=== PATIENT | female | born 1995 | race Caucasian/White ===

== ENCOUNTER 2016-10-05 21:27 | Inpatient (IN) | payer OTHER ==
[~2016-10-05] VITALS: Ht 157.5 cm; Wt 143.0 kg
[~2016-10-05 21:27] MED LIST: LUTERA 0.02 MG-1 TAB PO; OSCAL 500 TAB500 MG PO
[2016-10-05 22:10] LABS: HEMATOCRIT 42.4 % (37.0-47.0); HEMOGLOBIN 14.2 g/dl (12.5-16.0); MEAN CELL VOLUME 88 fl (80.0-100.0); MEAN CORPUSCULAR HEMOGLOBIN 30 pg (27.0-31.0); MEAN CORPUSCULAR HGB CONC 34 g/dl (33.0-37.0); MEAN PLATELET VOLUME 10.9 fl (7.4-10.4); PLATELET COUNT 283 K/mm3 (130-400); REDCELL DISTRIBUTION WIDTH-CV 12.6 % (11.5-14.5)
[2016-10-05 22:15] LABS: ADD PATHOLOGY DIFF REVIEW NO; WHITE BLOOD COUNT 23.9 K/mm3 (4.8-10.8)
[2016-10-05 22:20] LABS: ADJUSTED CALCIUM 9.8 mg/dL (8.4-10.2); ALBUMIN 3.8 gm/dL (3.5-5.0); BILIRUBIN,TOTAL 1.9 mg/dL (0.0-1.0); CALCIUM 9.6 mg/dL (8.4-10.2); CREATININE, serum 0.98 mg/dL (0.52-1.25); TOTAL PROTEIN 7.8 gm/dL (6.4-8.2)
[2016-10-05 22:33] LABS: PH 7 (5-8); SQUAMOUS EPITHELIAL 0-2 /hpf; URINE APPEARANCE Clear; URINE BACTERIA Rare /hpf; URINE BILIRUBIN Negative (NEGATIVE); URINE BLOOD Negative (NEGATIVE); URINE COLOR Yellow; URINE GLUCOSE Negative (NEGATIVE); URINE KETONE 2+ (NEGATIVE); URINE RBC 0-2 /hpf; URINE UROBILINOGEN >=4.0 mg/dL (NEGATIVE)
[2016-10-05 22:39] LABS: BAND 46 % (0-10); METAMYELOCYTE 2 % (0-0); NEUTROPHILS 45 % (42.0-75.2); PLATELET ESTIMATE NORMAL (NORMAL); TOTAL CELLS COUNTED 100
[2016-10-06] VITALS (13 sets, daily range): BP systolic 107–126; BP diastolic 60–80; PULSE 68–122; TEMP 97.8–99.3
[2016-10-06] MEDS ORDERED: ZOFRAN ODT8 MG PO (00:19)
[2016-10-06] MEDS ORDERED: OSCAL 500 TAB500 MG PO (00:20)
[2016-10-06] MEDS ORDERED: IBU800 M1 PO (00:20)
[2016-10-06] MEDS ORDERED: LUTERA 0.02 MG-1 TAB PO (00:21)
[2016-10-06] MEDS ORDERED: ZANTAC 150MG T150 MG PO (00:21)
[2016-10-06] MEDS ORDERED: PERCOCET 325 MG1 TA2 PO (00:22)
[2016-10-06] MEDS ORDERED: ZYRTEC 10MG10 MG PO (00:22)
[2016-10-06 08:35] LABS: MEAN CELL VOLUME 88 fl (80.0-100.0); MEAN CORPUSCULAR HGB CONC 33 g/dl (33.0-37.0); MEAN PLATELET VOLUME 10.6 fl (7.4-10.4); PLATELET COUNT 256 K/mm3 (130-400); RED BLOOD COUNT 3.99 M/mm3 (4.10-5.30); REDCELL DISTRIBUTION WIDTH-CV 12.6 % (11.5-14.5); WHITE BLOOD COUNT 17.8 K/mm3 (4.8-10.8)
[2016-10-06 08:41] LABS: ADD PATHOLOGY DIFF REVIEW NO; HEMATOCRIT 35.2 % (37.0-47.0); HEMOGLOBIN 11.7 g/dl (12.5-16.0); MEAN CORPUSCULAR HEMOGLOBIN 29 pg (27.0-31.0)
[2016-10-06 08:58] LABS: BAND 32 % (0-10); EOSINOPHIL 1 % (0-4); NEUTROPHILS 51 % (42.0-75.2); PLATELET ESTIMATE NORMAL (NORMAL); TOTAL CELLS COUNTED 100
[2016-10-07 00:40] VITALS: BP 109/55; PULSE 67; TEMP 97.8
[2016-10-07 08:40] LABS: MEAN CELL VOLUME 88 fl (80.0-100.0); MEAN CORPUSCULAR HGB CONC 34 g/dl (33.0-37.0); MEAN PLATELET VOLUME 10.5 fl (7.4-10.4); PLATELET COUNT 247 K/mm3 (130-400); RED BLOOD COUNT 3.75 M/mm3 (4.10-5.30); REDCELL DISTRIBUTION WIDTH-CV 12.9 % (11.5-14.5); WHITE BLOOD COUNT 16.1 K/mm3 (4.8-10.8)
[2016-10-07 08:46] LABS: ADJUSTED CALCIUM 9.4 mg/dL (8.4-10.2); ALBUMIN 2.8 gm/dL (3.5-5.0); BILIRUBIN,TOTAL 0.6 mg/dL (0.0-1.0); CALCIUM 8.4 mg/dL (8.4-10.2); CREATININE, serum 0.7 mg/dL (0.52-1.25)
[2016-10-07 08:51] LABS: HEMATOCRIT 32.9 % (37.0-47.0); HEMOGLOBIN 11.2 g/dl (12.5-16.0); MEAN CORPUSCULAR HEMOGLOBIN 30 pg (27.0-31.0)
[2016-10-07 08:52] LABS: ADD PATHOLOGY DIFF REVIEW NO
[2016-10-07 09:10] VITALS: BP 118/69; PULSE 61; TEMP 97.2
[2016-10-07 09:37] LABS: BAND 28 % (0-10); METAMYELOCYTE 1 % (0-0); MYELOCYTE 1 % (0-0); NEUTROPHILS 53 % (42.0-75.2); PLATELET ESTIMATE NORMAL (NORMAL); TOTAL CELLS COUNTED 100
[2016-10-07 16:10] VITALS: BP 118/74; PULSE 73; TEMP 97.7
[2016-10-07 19:15] VITALS: BP 125/79; PULSE 56; TEMP 98
[2016-10-08 00:50] VITALS: BP 123/80; PULSE 56; TEMP 98
[2016-10-08 07:41] LABS: MEAN CELL VOLUME 88 fl (80.0-100.0); MEAN CORPUSCULAR HGB CONC 33 g/dl (33.0-37.0); MEAN PLATELET VOLUME 10.9 fl (7.4-10.4); PLATELET COUNT 248 K/mm3 (130-400); RED BLOOD COUNT 3.72 M/mm3 (4.10-5.30); REDCELL DISTRIBUTION WIDTH-CV 13.2 % (11.5-14.5); WHITE BLOOD COUNT 12.7 K/mm3 (4.8-10.8)
[2016-10-08 07:54] LABS: ADJUSTED CALCIUM 9.3 mg/dL (8.4-10.2); ALBUMIN 2.9 gm/dL (3.5-5.0); BILIRUBIN,TOTAL 0.7 mg/dL (0.0-1.0); CALCIUM 8.4 mg/dL (8.4-10.2); CREATININE, serum 0.83 mg/dL (0.52-1.25); POTASSIUM 3.8 mmol/L (3.4-5.0); TOTAL PROTEIN 6.2 gm/dL (6.4-8.2)
[2016-10-08 08:09] LABS: HEMATOCRIT 32.9 % (37.0-47.0); MEAN CORPUSCULAR HEMOGLOBIN 30 pg (27.0-31.0)
[2016-10-08 08:47] LABS: METAMYELOCYTE 6 % (0-0); MYELOCYTE 10 % (0-0); NEUTROPHILS 50 % (42.0-75.2); PLATELET ESTIMATE NORMAL (NORMAL)
[2016-10-08 08:49] LABS: ADD PATHOLOGY DIFF REVIEW YES; BAND 14 % (0-10); TOTAL CELLS COUNTED 100
[2016-10-08 09:10] VITALS: BP 111/72; PULSE 62; TEMP 97.5
[2016-10-08 13:10] VITALS: BP 108/48; PULSE 82; TEMP 97.9
[2016-10-08] MEDS ORDERED: PERCOCET 325 MG1 TA2 PO (15:56)
[2016-10-08] MEDS ORDERED: AMOXICILLIN 8751 TAB PO (15:56)
[2016-10-08] MEDS ORDERED: IBU800 M1 PO (15:56)
[2016-10-08 19:45] VITALS: BP 134/83; PULSE 49; TEMP 97
[2016-10-11 08:44] LABS: PATHOLOGY DIFF REVIEW OK
== END 2016-10-08 21:15 | disposition home or self-care (01) | DRG 856 ==
LOC: COL.ER 21:27 → OB 23:39
PROVIDERS: Family Medicine; Obstetrics & Gynecology
PROC: 0WJG4ZZ Inspection of Peritoneal Cavity, Percutaneous Endoscopic Approach (ICD-10-PCS; 2016-10-06)
PROC: 0TJB8ZZ Inspection of Bladder, Via Natural or Artificial Opening Endoscopic (ICD-10-PCS; 2016-10-06)
PROC: 0UN Female Reproductive System, Release (ICD-10-PCS; principal; 2016-10-06 10:00)
DX: T81.4XXA Infection following a procedure, initial encounter (principal); K65.9 Peritonitis, unspecified; K66.0 Peritoneal adhesions (postprocedural) (postinfection)
CPT/HCPCS: A4315; G0378; J0690; J1100; J1170; J1885; J2405; J2543; J2704; J2710; J2765; J3010; J7030; J7050; J7120; Q9967

== ENCOUNTER 2017-05-21 04:10 | Emergency (ER) | payer BC ==
[~2017-05-21] VITALS: Ht 160 cm; Wt 70.0 kg
[~2017-05-21 04:10] MED LIST changes: +AMOXICILLIN 8751 TAB PO; +IBU800 M1 PO; +PERCOCET 325 MG1 TA2 PO; +ZANTAC 150MG T150 MG PO; +ZOFRAN ODT8 MG PO; +ZYRTEC 10MG10 MG PO
[2017-05-21 04:12] VITALS: BP 111/64; TEMP 96.8
[2017-05-21] MEDS ORDERED: PRILOSEC10 MG PO (04:16)
[2017-05-21] MEDS ORDERED: AVIANE 0.02 MG-1 TAB PO (04:16)
[2017-05-21] MEDS ORDERED: PREDNISONE10 MG PO (04:40)
[2017-05-21 04:55] VITALS: PULSE 93
== END 2017-05-21 04:55 | disposition home or self-care (01) ==
LOC: COL.ER 04:10
DX: L51.9 Erythema multiforme, unspecified (principal)
CPT/HCPCS: J7512